=== PATIENT | female | born 1975 | race American Indian/Alaskan Native ===

== ENCOUNTER 2016-09-18 15:59 | Emergency (ER) | payer OTHER ==
[2016-09-18] MEDS ORDERED: TYLENOL PO ONE (17:05)
[2016-09-18 21:37] VITALS: BP 159/103
--- NOTE | 2016-09-18 22:46 | Emergency Department Report ---
ED Headache HPI - General Chief Complaint: High BP Stated Complaint: HBP/HEADACHE /DIZZINESS/ Time Seen by Provider: 09/18/16 22:25 Source: patient - History of Present Illness Initial Comments: Patient reports that her primary care doctor adjusted her blood pressure medication last week she is on Norvasc and lisinopril with HCTZ. She said her Norvasc was increased to 10 mg. She says she is concerned about her blood pressure especially the bottom number she said it was over 90. She complains of dizziness and headache for weeks. Denies any chest pain or shortness of breath. Denies any blurred vision. Patient blood pressure in triage was 157/ 109 and she received Tylenol and triage area. She said her headache was still another 10 located on the right side of her head frontally. Denies any nausea or vomiting. Denies any numbness or tingling to extremities or face. Patient took her lisinopril with HCTZ this morning and says she usually takes her Norvasc at night. Denies any neck pain or stiffness or fever or chills. She said she has a visit with her primary care physician in the morning. Timing/Duration: waxing and waning, other ( weeks) Quality: severe, achy Head Injury Location: frontal (right frontal) Recent Head Trauma: occasional headaches Modifying Factors: improves with: rest Associated Symptoms: denies: confusion, fatigue, facial pain, fever/chills, flushing, loss of consciousness, nausea/vomiting, nasal congestion, nasal drainage, numbness in legs/feet, rash, seizures, sinus infection, stiff neck, vision changes, weakness Allergies/Adverse Reactions: Allergies No Known Allergies Allergy (Unverified 09/18/16 16:59) Home Medications: Ambulatory Orders Lisinopril/Hydrochlorothiazide [Zestoretic 20-25 mg] 1 tab PO DAILY 09/18/16 amLODIPine [Norvasc] 10 mg PO DAILY 09/18/16 ED Review of Systems ROS: Stated complaint: HBP/HEADACHE /DIZZINESS/ Other details as noted in HPI Comment: All other systems reviewed and negative Constitutional: denies: chills, fever Eyes: denies: eye pain, vision change ENT: denies: epistaxis, congestion Respiratory: no symptoms reported Cardiovascular: denies: chest pain, palpitations, edema, syncope Gastrointestinal: denies: abdominal pain, nausea, vomiting, diarrhea Musculoskeletal: denies: back pain, joint swelling, arthralgia, myalgia Skin: denies: rash Neurological: headache, other (dizziness). denies: weakness, numbness, paresthesias, confusion, abnormal gait ED Past Medical Hx - Past Medical History Previous Medical History?: Yes Hx Hypertension: Yes - Surgical History Past Surgical History?: Yes Additional Surgical History: Hysterectomy - Family History Family history: hypertension - Social History Smoking Status: Never Smoker Substance Use Type: Prescribed - Medications Home Medications: Home Medications Medication Instructions Recorded Confirmed Last Taken Type Lisinopril/Hydrochlorothiazide 1 tab PO DAILY 09/18/16 09/18/16 09/18/16 History [Zestoretic 20-25 mg] amLODIPine [Norvasc] 10 mg PO DAILY 09/18/16 09/18/16 09/17/16 History ED Physical Exam - General Limitations: No Limitations General appearance: alert, in no apparent distress - Head Head exam: Present: atraumatic, normocephalic, normal inspection - Expanded Head Exam Expanded Head exam: Absent: laceration, abrasion, contusion, hematoma, racoon eyes, uriostegui's sign, general tenderness, tenderness of temporal artery, CSF rhinorrhea , CSF otorrhea - Eye Eye exam: Present: normal appearance, PERRL, EOMI. Absent: nystagmus, periorbital swelling, periorbital tenderness Pupils: Present: normal accommodation - ENT ENT exam: Present: normal exam, normal orophraynx, mucous membranes moist, normal external ear exam - Neck Neck exam: Present: normal inspection, full ROM. Absent: tenderness, meningismus, lymphadenopathy - Expanded Neck Exam Expanded Neck exam: Absent: tenderness, midline deformity, anterior neck swelling, tracheal deviation - Respiratory Respiratory exam: Present: normal lung sounds bilaterally, respiratory distress. Absent: chest wall tenderness - Cardiovascular Cardiovascular Exam: Present: regular rate, normal rhythm, normal heart sounds - GI/Abdominal GI/Abdominal exam: Present: soft, normal bowel sounds. Absent: distended, tenderness - Extremities Exam Extremities exam: Present: normal inspection, full ROM, normal capillary refill. Absent: tenderness, pedal edema, joint swelling, calf tenderness - Back Exam Back exam: Present: normal inspection, full ROM. Absent: paraspinal tenderness , vertebral tenderness - Neurological Exam Neurological exam: Present: alert, oriented X3, normal gait, reflexes normal. Absent: motor sensory deficit - Expanded Neurological Exam Expanded Neurological exam: Absent: innattentive, memory loss-remote event, memory loss- recent event, ataxia, receptive aphasia, expressive aphasia, total aphasia, tremor, protecting the airway Patient oriented to: Present: person, place, time Speech: Present: fluid speech Cranial nerves: EOM's Intact: Normal, Gag Reflex: Normal, Tongue Deviation: Normal, Nystagmus: Normal, Facial Sensation: Normal Cerebellar function: Romberg: Normal Upper motor neuron: Pronator Drift: Normal, Sensory Extinction: Normal Sensory exam: Upper Extremity Light Touch: Normal, Upper Extremity Temperature: Normal, UE 2 Point Discrimination: Normal, Lower Extremity Light Touch: Normal, Lower Extremity Temperature: Normal, LE 2 Point Discrimination: Normal Motor strength exam: RUE: 5, LUE: 5, RLE: 5, LLE: 5 DTR: bicep (R): 2+, bicep (L): 2+, tricep (R): 2+, tricep (L): 2+, knee (R): 2+ , knee (L): 2+, ankle (R): 2+, ankle (L): 2+ Best Eye Response ([place]): (4) open spontaneously Best Motor Response ([place]): (6) obeys commands Best Verbal Response ([place]): (5) oriented Nena Total: 15 - Psychiatric Psychiatric exam: Present: normal affect, normal mood - Skin Skin exam: Present: warm, dry, intact, normal color. Absent: rash ED Course Vital Signs 09/18/16 09/18/16 09/18/16 17:00 17:08 21:36 Temperature 98 F Pulse Rate 79 83 Respiratory 20 18 18 Rate Blood Pressure 157/109 Blood Pressure 159/103 [Left] O2 Sat by Pulse 100 100 Oximetry - Reevaluation(s) Reevaluation #1: 09/18/16 23:[address] scan. She received Tylenol 650 mg emergency room and reports that her headache is on and off. She is no longer having any dizziness. ED Medical Decision Making - Radiology Data interpreted by me: refused CT scan see signed refusal on chart - Medical Decision Making ED course:Patient here complaining of headache after blood pressure medication adjusted. I ordered her Norvasc her blood pressure 159/103 in emergency room. Refused Norvasc. He can also refused CT scan of the head and signed paperwork. She says she doesn't feel like she needs that and she has an appointment with her primary care in the morning and she'll follow-up. Neurological exam was intact but patient was very concerned about her headache and said it was new so I offered CT scan and she agreed at first but when she went to CT scan she said she change her mind. Patient last blood pressure is 159/103. She receives Tylenol 650 mg and triage area and said her headache is on and off. I discussed with patient that if she develops return in dizziness, increase in headache, nausea or vomiting, blurred vision to return to the emergency room [facility] otherwise to follow-up with her primary care physician in the morning as scheduled. Patient voiced understanding the discharge instruction and treatment plan and discharged home and told to take her Norvasc when she gets home as she refuses that in the emergency room. Critical care attestation.: If time is entered above; I have spent that time in minutes in the direct care of this critically ill patient, excluding procedure time. ED Disposition Clinical Impression: Dizziness Hypertension Qualifiers: Hypertension type: essential hypertension Qualified Code(s): I10 - Essential ( primary) hypertension Headache Qualifiers: Headache type: unspecified Headache chronicity pattern: episodic headache Intractability: not intractable Qualified Code(s): R51 - Headache Disposition: DISCHARGED TO HOME OR SELFCARE Is pt being admited?: No Does the pt Need Aspirin: No Condition: Stable Instructions: Hypertension (ED), Acute Headache (ED), Dizziness (ED) Additional Instructions: Please follow-up with your primary care as he told me you have an appointment in the morning. Please take your Norvasc when you get home. He develop increasing headache, nausea or vomiting, blurred vision, increasing dizziness, chest pain or shortness of breath please return to the emergency room [facility]. A CT scan of the head was offered to you and you signed a refusal. Referrals: PRIMARY CAREMD [Primary Care Provider] - 09/19/16 Forms: Work/School Release Form(ED)
[2016-09-18] MEDS ORDERED: NORVASC PO ONE (22:47)
== END 2016-09-18 23:35 | disposition home or self-care (01) ==
LOC: ED 15:59
DX: R42 Dizziness and giddiness (principal); I10 Essential (primary) hypertension; R51 Headache
CPT/HCPCS: 99282